=== PATIENT | female | born 1960 | race Caucasian/White ===

== ENCOUNTER 2017-11-07 16:51 | Emergency (ER) ==
[2017-11-07 17:03] VITALS: BP 153/78; TEMP 99.4; BMI 28.6
[2017-11-07] MEDS ORDERED: DILAUDID 1 MG/ML SYRINGE IM STA (18:05)
--- NOTE | 2017-11-07 18:08 | ED.PDOC ---
General Stated Complaint: Patient is a 57 year old who comes to the ER complaining of left shoulder, and forearm pain that started after a fall yesterday. Has swelling and limited range of motion. She took her home pain medication but did not take any today. Time Seen by Physician: 18:00 Mode of Arrival: Walk-In Information Source: Patient Nursing and Triage Documentation Reviewed and Agree: Yes Reviewed sepsis parameters & appropriate labs ordered?: No System Inflammatory Response Syndrome: Not Applicable System Inflammatory Response Syndrome: Not Applicable ED Provider: Dr. KENN BURGER Chief Complaint: Extremity Pain/Injury Sepsis Protocol: For patient's 13 years and over: Temp is 96.8 and below OR 101 and greater Pulse >90 BPM Resp >20/minute Acutely Altered Mental Status Are patient's symptoms suggestive of a new infection, such as: -Pneumonia -Skin, Soft Tissue -Endocarditis -UTI -Bone, Joint Infection -Implantable Device -Acute Abdominal Infection -Wound Infection -Meningitis -Blood Stream Catheter Infection -Unknown Review of Systems - Review Of Systems Constitutional: Reports: No symptoms Eyes: Reports: No symptoms Ears, Nose, Mouth, Throat: Reports: No symptoms Respiratory: Reports: No symptoms Cardiac: Reports: No symptoms GI: Reports: No symptoms : Reports: No symptoms Musculoskeletal: Reports: Joint pain, Muscle pain Skin: Reports: Bruising, Other (contusion ) Neurological: Reports: Anxiety Endocrine: Reports: No symptoms Hematologic/Lymphatic: Reports: No symptoms All Other Systems: Reviewed and Negative Past Medical History - Past Medical History Previously Healthy: Yes Endocrine: Reports: None Cardiovascular: Reports: None Respiratory: Reports: None Hematological: Reports: None Gastrointestinal: Reports: None Genitourinary: Reports: None Neuro/Psych: Reports: None Musculoskeletal: Reports: Arthritis Cancer: Reports: Breast Last Menstrual Period: na - Surgical History General Surgical History: Reports: Orthopedic (right shoulder replacement), Other (breast cancer biliteraly Mastectomy) - Family History Family History: Reports: Unknown - Social History Smoking Status: Former smoker Hx Substance Use: No Alcohol Screening: Occasionally - Immunizations Tetanus Shot up to Date: Yes Physical Exam - Physical Exam Appearance: Ill-appearing Ill-appearing: Mild Pain Distress: Severe Eyes: SHWETHA, EOMI, Conjunctiva clear Neck: Supple Respiratory: Airway patent, Breath sounds clear, Breath sounds equal, Respirations nonlabored Musculoskeletal: Limited ROM (on the left arm and wrist), Edema (left wrist ) Neurological: Sensation intact, Alert, Oriented Psychiatric: Anxious Interpretation - Radiology Interpretation Radiology Interpretation By: Radiologist Radiology Results: Negative Exam Interpreted: Other (x rays of shoulder wrist and hand ) Critical Care Note - Critical Care Note Total Time (mins): 0 - Course Orders, Labs, Meds: Orders Category Date Time Status Splint [ED SPLINT APPLICATION] .ONCE EMERGENCY 11/07/17 19:57 Active Hydromorphone HCl [Dilaudid 1 mg/ml Syringe] MEDS 11/07/17 18:05 Discontinued 0.5 mg IM ONCE STA HAND, LEFT 3 VIEWS Stat RADS 11/07/17 18:05 Completed SHOULDER, LEFT MIN 2V Stat RADS 11/07/17 18:05 Completed WRIST, LEFT 3 VIEWS Stat RADS 11/07/17 18:05 Completed Medications Discontinued Medications Generic Name Dose Route Start Last Admin Trade Name Freq PRN Reason Stop Dose Admin Hydromorphone HCl 0.5 mg 11/07/17 18:05 11/07/17 18:28 Dilaudid 1 Mg/Ml Syringe IM 11/07/17 18:06 0.5 mg ONCE STA Administration Vital Signs: Temp Pulse Resp BP Pulse Ox 11/07/17 16:53 99.4 F 83 16 153/78 H 34 L Departure - Departure Time of Disposition: 20:03 Pt referred to PMD for follow-up: Yes IPMP verified?: No Disposition Discussed With: Patient, Family - Departure Disposition: HOME SELF-CARE Discharge Problem: Right wrist sprain Qualifiers: Encounter type: initial encounter Qualified Code(s): S63.501A - Unspecified sprain of right wrist, initial encounter Rotator cuff (capsule) sprain Qualifiers: Encounter type: initial encounter Laterality: left Qualified Code(s): S43.422A - Sprain of left rotator cuff capsule, initial encounter Instructions: Wrist Injury (ED) Condition: Good Additional Instructions: Follow up with your primary care physician. Allergies/Adverse Reactions: Allergies acetaminophen [From Percocet] Adverse Reaction (Verified 11/07/17 17:02) nickel Adverse Reaction (Verified 11/07/17 17:02) oxycodone [From Percocet] Adverse Reaction (Verified 11/07/17 17:02)
--- NOTE | 2017-11-07 19:17 | DI ---
EXAM: Left wrist three views HISTORY: Fall COMPARISON: None. FINDINGS: Degenerative changes are noted about the radiocarpal joint and first carpometacarpal joint . There is no acute fracture or dislocation. There is mild soft tissue swelling noted dorsally. IMPRESSION: No acute findings
--- NOTE | 2017-11-08 07:19 | DI ---
EXAM: Radiographs, left shoulder HISTORY: Initial presentation for left shoulder trauma. COMPARISON: None available. TECHNIQUE: Three views. FINDINGS: Bone mineralization is decreased. There is no fracture or dislocation. Moderate glenohum eral osteoarthritis is present. No focal soft tissue abnormality is seen. Suspect right lung scarrin g and previous surgery. Consider dedicated chest radiographs. Atherosclerotic calcifications are pre sent. IMPRESSION: No fracture or dislocation.
--- NOTE | 2017-11-08 07:32 | DI ---
EXAM: 3 views of the left hand HISTORY: Trauma post fall with swelling. COMPARISON: Left wrist x-ray same day FINDINGS: There is no cortical irregularity or displaced fracture of the left hand. There is mild de generative change and narrowing of the radiocarpal joint. There is no lytic or blastic lesion. Ther e is mild narrowing of the DIP joints. Rings are noted on the fifth and third digits. IMPRESSION: 1. No acute abnormality or displaced fracture of the left hand. 2. Mild scattered degenerative disease.
== END 2017-11-07 20:00 | disposition home or self-care (01) ==
LOC: ED 16:51
DX: S63.501A Unspecified sprain of right wrist, initial encounter (principal); S43.422A Sprain of left rotator cuff capsule, initial encounter; W19.XXXA Unspecified fall, initial encounter
CPT/HCPCS: 96372; 99283